=== PATIENT | male | born 1965 | race African-American/Black ===

== ENCOUNTER 2021-08-26 10:55 | Day surgery (SDC) | payer BC ==
[~2021-08-26] VITALS: Ht 162.6 cm; Wt 63.5 kg
[~2021-08-26 10:55] MED LIST: AMLO-187 PO; BUPIVACAINE-EPI 0.5% 30 ML VIAL KIT. ONE; BYSTOLIC5 MG PO; CRESTOR5 MG PO; HYDROmorphone 2 MG/ML VIAL IVP PRN; IV RINGERS,LACTATED 1000ML 1,000 ML IV SCH; LOSA100T14 PO; MORPHINE SULFATE 2 MG/ML INJ. IVP PRN; MULT-245 PO; PROCHLORPERAZINE 10 MG/2 ML VIAL. IVP PRN; TAMS0.4C97 PO; ceFAZolin SODIUM IV Push 1 GM VIAL. IVP PRN; fentaNYL PF VIAL 100 MCG/2 ML VIAL IVP PRN
[2021-08-26 11:32] VITALS: BP 147/90
[2021-08-26] MEDS ORDERED: PROPOFOL 10 MG/ML (20ML) VIAL. IV ONE ×3 (11:44→14:18)
[2021-08-26] MEDS ORDERED: fentaNYL PF VIAL 100 MCG/2 ML VIAL ONE (11:44)
[2021-08-26] MEDS ORDERED: ONDANSETRON PF 4 MG/2 ML VIAL. ONE (11:44)
[2021-08-26] MEDS ORDERED: DEXAMETHASONE SOD PHOS 4 MG/ML VIAL ONE (11:44)
[2021-08-26] MEDS ORDERED: FAMOTIDINE 20 MG/2 ML VIAL ONE (11:44)
[2021-08-26] MEDS ORDERED: LIDOCAINE 1% PF 5 ML VIAL. ONE (11:45)
[2021-08-26] MEDS ORDERED: MIDAZOLAM HCL/PF 2 MG/2 ML VIAL. ONE (11:45)
[2021-08-26] MEDS ORDERED: LIDOCAINE 2% PF 5 ML VIAL. ONE (13:06)
[2021-08-26] MEDS ORDERED: BUPIVACAINE-EPI 0.5% 30 ML VIAL KIT. ONE (13:10)
--- NOTE | 2021-08-26 14:59 | PDOC4 ---
Operative Note Operative Note Operative Note: Preoperative Diagnosis: Left inguinal hernia Postoperative Diagnosis: Same Procedure: Left inguinal hernia repair with mesh Surgeon: [facility] Nurse: LONNIE Orantes Jacob Weipen MS4 Anesthesia: General EBL: 10 mL Specimen: None Drains: None Complications: None Indication: The patient is a 55-year-old male who is referred due to a left inguinal hernia. He was offered surgical repair. The risks of surgery were discussed which include bleeding, infection, recurrence, pain, anesthetic risk, potential need for additional surgery procedure. He understands and would like to proceed. Description: The patient was taken the operating room and placed supine on the operating table. General anesthesia was performed. The left groin was shaved prepped with ChloraPrep and draped in a standard surgical manner. An incision was made in the skin lines of the left groin with a scalpel. Cautery dissection was carried to the external bleak aponeurosis. The aponeurosis was opened down to the external ring. The contents of the inguinal canal were mobilized digitally and encircled with a Zaynab drain. The patient had a small to moderate sized direct hernia defect. The hernia sac was mobilized from the surrounding tissues and fully reduced. The defect was filled with an extra- large Phasix mesh plug. The plug was sutured into position with interrupted 2-0 Vicryl. The inguinal floor was then reinforced with a Prolene keyhole mesh patch. A slit was made to accommodate the cord structures. The patch was sutured into position with 2-0 Vicryl. The external oblique was closed over the mesh with 2-0 Vicryl. The subcutaneous tissue was approximated with 3-0 Vicryl. Skin was closed with 4-0 Monocryl and infiltrated with half percent Marcaine with epinephrine. Steri-Strips and a sterile dressing were applied. The patient tolerated the procedure well and was sent to the recovery room in stable condition. At the end of the case all counts were correct. VENUS HAMILTON MD Aug 26, 2021 14:59
[2021-08-26] MEDS ORDERED: OXYC-325 PO (15:03)
--- NOTE | 2021-08-26 15:06 | DISCH ---
DISCHARGE INSTRUCTIONS Condition on Discharge Condition on Discharge: Stable Activity After Discharge Activity Instructions for Disc: Other, see below (no lifting over 20 lbs or strenuous activity, no driving while taking pain meds) Diet after Discharge Diet after Discharge: Regular Wound Incision Care Wound/Incision Care: Other, see below (keep dressing clean and dry X 72 hours, may then remove and shower) Follow-Up Follow up with: Dr Hamilton in office in 2 weeks, call for appointment [phone] VENUS HAMILTON MD Aug 26, 2021 15:06
[2021-08-26] MEDS ORDERED: oxyCODONE/APAP 5/325 1 TAB TABLET PO ONE (16:15)
[2021-08-26] MEDS ORDERED: oxyCODONE/APAP 5/325 1 TAB TABLET ONE (16:20)
[2021-08-26 16:43] VITALS: BP 123/76
== END 2021-08-26 17:32 | disposition home or self-care (01) ==
LOC: SURG 10:55
PROVIDERS: ATTEND Surgery
DX: K40.90 Unilateral inguinal hernia, without obstruction or gangrene, not specified as recurrent (principal); I10 Essential (primary) hypertension; E78.00 Pure hypercholesterolemia, unspecified; Z98.890 Other specified postprocedural states; Z79.899 Other long term (current) drug therapy
CPT/HCPCS: 49505; A4209; A4930; A6402; C1781; J0690; J1100; J2250; J2405; J2704; J3010; J3490